=== PATIENT | male | born 1995 | race Caucasian/White ===

== ENCOUNTER → 2024-08-25 | Outpatient (CLI) | payer MEDICAID, SELFPAY ==
--- NOTE | 2024-08-25 10:30 | XR_ITS ---
Examination: MRI brain without intravenous contrast. Date and time of exam: August 25, 2024 1213 hours INDICATIONS: Disorientation unable to focus paresthesias blurred vision months Technique: Multiple axial and sagittal images of the brain obtained. Siemens high-resolution 1.5 [place] short bore scanners utilized. Sagittal sections, T1-weighted, TR 500, TE 14, are performed. Axial sections proton-density and T2-weighted have been obtained. Inversion recovery axial images, TR 9, 260, TE 111, TI 2500. Diffusion weighted images, axial sections, TR 4800, TE 128, B value 1000 Axial sections, ADC map, TR 4800, TE 128 Findings: Enlargement of the sella turcica is not present. The optic chiasm and infundibular are not remarkable. Prepontine and interpeduncular cisterns are not enlarged. There is no localized enlargement of the medulla or negro. Fourth ventricle and cerebellar tonsils appear normal in position. No subacute area of hemorrhage density is seen. Mass in the cerebellopontine angle region is not evident. Globes symmetrical. Orbital musculature including medial lateral rectus muscles do not exhibit abnormality. Diffusion-weighted images demonstrate no focus of restricted diffusion. Increased white matter signal not seen Chronic ethmoid frontal sinusitis Mass effect upon the ventricular system is not identified. Impression: Negative for acute hemorrhage, mass effect or midline shift No acute infarct No MR findings diagnostic for demyelinating disease
== END | disposition home or self-care (01) ==
PROVIDERS: PCP Physician Assistant Medical; Referring Provider Physician Assistant Medical; Visit Provider Physician Assistant Medical
DX: F79 Unspecified intellectual disabilities (principal)
CPT/HCPCS: 70551

== ENCOUNTER 2024-08-27 12:32 | Emergency (ER) | payer MEDICAID, SELFPAY ==
[2024-08-27 13:27] VITALS: BP 112/67; PULSE 88; RESP 18; TEMP 36.9; O2SAT 100; BMI 23.6
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
== END 2024-08-27 16:18 | disposition home or self-care (01) ==
LOC: SERX 15:52
PROVIDERS: Emergency Provider Emergency Medicine
DX: S09.90XA Unspecified injury of head, initial encounter (principal); S00.11XA Contusion of right eyelid and periocular area, initial encounter; W19.XXXA Unspecified fall, initial encounter
CPT/HCPCS: 70450; 70486; 72125; 99284